=== PATIENT | male | born 1985 | race Caucasian/White ===

== ENCOUNTER 2016-12-03 12:30 | Day surgery (SDC) | payer OTHER ==
[~2016-12-03] VITALS: Ht 177.8 cm; Wt 87.2 kg
[2016-12-03] VITALS (7 sets, daily range): BP systolic 104–120; BP diastolic 49–70; PULSE 60–85; RESP 10–17; O2SAT 95–99
[~2016-12-03 12:30] MED LIST: CeFAZolin Inj 2 GM in IV Premix 1 EACH IV ONE
[2016-12-03] MEDS ORDERED: MetoCLOpramide 5 mg/mL 2 mL Inj ONE (12:31)
[2016-12-03] MEDS ORDERED: fentaNYL-PF 50 mCg/mL 2 mL Inj ONE (12:31)
[2016-12-03] MEDS ORDERED: Dexamethasone 4 mg/mL Inj ONE (12:31)
[2016-12-03] MEDS ORDERED: Propofol 10,000 mCg/mL 20 mL Inj ONE (12:31)
[2016-12-03] MEDS ORDERED: Ondansetron 2 mg/mL 2 mL Inj ONE (12:31)
[2016-12-03] MEDS: Lactated Ringer's 1,000 ML IV SCH ×2 (12:46→13:51)
[2016-12-03] MEDS ORDERED: CeFAZolin Inj 2 gm / 50mL D5W IV ONE (13:04)
[2016-12-03] MEDS ORDERED: Lactated Ringer's 1,000 ML IV SCH (13:41)
[2016-12-03] MEDS ORDERED: Lactated Ringer's 500 ML IV PRN (13:41)
--- NOTE | 2016-12-03 13:41 | PCM.HPANE ---
Patient Data Surgeon Admitting Provider: Attending Provider:Chas Burton MD Primary Care Physician:Helga Other Provider:Sheyla Garcia Anesthesia Reason for Visit Left Medial Meniscal Tear Ht/WT & BMI Height (Feet): 5 Height (Inches): 10 Weight (Kilograms): 87.2 Body Mass Index 27.00 Allergies Coded Allergies: No Known Allergies (Unverified , 12/03/16) Past Anesthesia History Anesthesia History: Denies:: Fam Anesthesia Reaction, Fam Malignant Hypertherm Diabetes History Hx Diabetes?: No MRSA MRSA: No Medications Hypertension Medication: No Home Meds Incl Beta Ad: No No Active Prescriptions or Reported Meds History History of ENT Problems?: Yes HEENT History: Positive for:: Sinus Problem (SEASONAL ALLERGIES) Denture Type: None Teeth Condition: Within Normal Limits Hx of Heart Problems?: No Cardiovascular History: Denies:: Heart Murmur Hypertension Hx of Respiratory Problem?: No Respiratory History: Denies:: Use of C-PAP Machine Hx Neurologic Problems?: No Hx of GI Problems?: No Hx of Problems?: No Male Hx: Denies:: Prostate Problems Scrotal Mass Testicular Surgery Skin History: Denies:: History Skin Disorders? Pressure Ulcers Hx Musculoskeletal Problems?: Yes Musculoskeletal History: Positive for:: Musculoskeletal Trauma (HX FALL @ AGE 16YRS W/ LT KNEE INJ LT MEDIUAL MENISCAL TEAR=CURRENT PROB.) Hx of Psycho/Social Problems?: No Hx Surgeries?: No Hx Any Other Health Problems?: No Other History: Denies:: Cancer Endocrine Disease Hospitalization Thyroid Disease History Blood Transfusions: Denies:: Blood Transfusions Hx Diabetes: No Hx Substance Use: No Smoking Status: Never Smoker Have You Smoked inLast 12 mo: No Stop/Bang Treated for Sleep Apnea?: No Do You Have a CPAP Machine?: No S-Snoring: Do You Snore Loudly: No T-Tired: feel tired, fatigued: No O-Obsered: Observed not breath: No P-Blood Pressure: treated: No B- Body Mass Index > 35 kg/m2: No A- Age over 50: No N- Neck Large Circumference: No G- Gender Male: Yes GENIE Total Score: 1 GENIE Risk Assessment: Low Risk, <3 Yes Risk Assessment Category Category 1A: Patient has history of documented sleep apnea, and HAS NOT received any narcotic, sedative or anesthesia administration during this stay. Category 1B: Patient has history of documented sleep apnea, and HAS received any narcotic , sedative or anesthesia administration during this stay Category 2: Patient has SUSPECTED Obstructive Sleep Apnea, and HAS received any narcotic , sedative or anesthesia administration during this stay. Category 3: Patient has SUSPECTED Obstructive Sleep Apnea and HAS NOT received narcotic, sedative or anesthesia administration during this stay. Category 4: Outpatient in Procedural Areas with known sleep apnea or who screen positive for High Risk via the STOP/BANG questionnaire. Exam Exam Vital Signs Vital Signs Date Time Temp Pulse Resp B/P Pulse Ox O2 Delivery O2 Flow Rate FiO2 12/03/16 12:55 36.9 60 16 113/70 97 Room Air General Appearance: Oriented X3 HEENT/AIRWAY: MP 1 Lungs: Normal Air Movement Heart: Regular Rate/Rhythm Meds/Labs/Diagnostics Admission Meds Current Medications Lactated Ringer's (Lr) 1,000 ml @ 120 mls/hr [id number] IV Last administered on t 12:46; Start 12/03/16 at 05:00; Stop 12/03/16 at 13:19; Status DC Plan Impression Patient chart reviewed, patient interviewed and anesthestic plan with risks, benefits, and alternatives discussed, and informed consent obtained. ASA Physical Status: ASA1 Normal Healthy Anesthetic Plan: GA Bene/Risks/Altern/Consents: Yes HP Complete Prior to Induction: Yes Graham Griffiths MD December 03, 2016 13:41
[2016-12-03] MEDS ORDERED: EPHEDrine Sulfate 50 mg/mL Inj IVPUSH PRN (13:45)
[2016-12-03] MEDS ORDERED: HYDROmorphone 1 mg/mL Inj IVPUSH PRN (13:45)
[2016-12-03] MEDS ORDERED: Dexamethasone 4 mg/mL Inj IVPUSH PRN (13:45)
[2016-12-03] MEDS ORDERED: fentaNYL-PF 50 mCg/mL 2 mL Inj IVPUSH PRN (13:45)
[2016-12-03] MEDS ORDERED: Ondansetron 2 mg/mL 2 mL Inj IVPUSH PRN (13:45)
[2016-12-03] MEDS ORDERED: MetoCLOpramide 5 mg/mL 2 mL Inj IVPUSH PRN (13:45)
[2016-12-03] MEDS ORDERED: Phenylephrine 10,000 mCg/mL Inj IVPUSH PRN (13:45)
[2016-12-03] MEDS ORDERED: Ropivacaine-PF 0.5% 30 mL Inj INJ ONE (14:17)
[2016-12-03] MEDS ORDERED: HYDROcodone-APAP 5-325 mg Tablet PO PRN (14:45)
[2016-12-03] MEDS ORDERED: Ketorolac 15 mg/mL Inj IVPUSH ONE (14:45)
--- NOTE | 2016-12-03 14:53 | PCM.ORTHOP ---
Orthopedic Operative Report Date of Service: December 03, 2016 Pre Operative Diagnosis Left knee medial meniscus tear Post Operative Diagnosis Same Procedure Left knee arthroscopy, medial meniscus repair, chondroplasty, partial synovectomy Surgeon Surgeon: Chas Burton MD Assistants: None Indication for Procedure Left knee medial meniscus tear Findings Left knee nondisplaced horizontal bucket-handle tear Details of Procedure INDICATIONS: Jerome Rodríguez is a 31-year-old male who has had a history of left knee pain. The patient has failed conservative management. X-rays show the tibiofemoral joints to be preserved with no DJD. MRI was obtained which reveals media horizontal meniscus tear. The patient has had persistent symptoms and is now brought to the operating room for arthroscopy. The risks, benefits, and alternatives of surgery were discussed with the patient. The risks included but were not limited to infection, bleeding, damage to vessels and nerves, loss of motion, continued pain, re-tear of the meniscus, deep venous thrombosis, and complications due to anesthesia including nerve injury, myocardial infarction, stroke, , etc. The patient stated understanding of the nature of the surgical procedure and gave written and verbal consent to proceed. PROCEDURE: The patient was brought to the operating room and placed supine on the operating room table. After the administration of general anesthesia the patient was placed in the supine position. Examination of the knee revealed no evident instability with a trace effusion. All prominences were padded with appropriately and neurovascular structures protected. The left knee was confirmed to be the appropriate site following surgical time out. The left lower extremity was examined under anesthesia. Range of motion was 0-135 degrees. There was no varus or valgus or anterior or posterior instability. The left lower extremity was then prepped and draped in the usual fashion. Sterile prep and drape was then undertaken of the knee. The knee joint was injected with 20 ccs of 1% Lidocaine, along with 3 ccs of 1 % lidocaine in the medial and lateral portal sites respectively. A standard anterolateral parapatellar stab wound was created. The knee joint was entered with a blunt- tipped obturator, followed by the 30-degree video arthroscope. An anteromedial portal was established under arthroscopic control. A routine arthroscopic survey was performed. The patellofemoral joint showed grade 1/2 chondromalacia. The medial joint space was then entered. The articular surfaces showed grade 1/ 2 chondromalacia. A horizontal nondisplaced bucket-handle medial meniscal tear was noted. The rasp was used to freshen up the surface and 2 [employer] FasT-Fix suture anchors were used to repair the meniscus. A probe was used to assess the meniscus which was stable after repair. The ACL and PCL were noted to be intact. The lateral joint space was then entered. The articular surfaces were intact with grade 2/3 chondromalacia. There was degenerative fraying to the inner aspect of the lateral meniscus which was stable and did not need debridement. Grade 2/3 chondromalacia was noted on the tibial surface which was debrided with a shaver.. Moderate synovitis was noted anteriorly in the medial and lateral compartment and debrided with a shaver. The knee was irrigated with an additional 2 liters of lactated Ringer's solution. Excess fluid was drained. The portals were closed with 3-0 nylon as well as xeroform. The knee was injected with 20 mL of 0.5% ropivacaine. A dry sterile dressing was applied, followed by an REG hose, soft roll, and CESAR bandage. The patient was awakened in the operating room and transported to the recovery room in satisfactory condition. The patient appeared to tolerate the procedure well. At the completion of surgery the patient had soft compartments , palpable pulses, and brisk capillary refill. There were no complications noted. Please keep dressing clean dry and intact. Do not remove dressing until follow- up in clinic. If the dressing become soaked, you may remove the outer gauze and placed Band-Aids on the wounds. You may weight-bear as tolerated with the brace on at all times. Do Not Bend Your Knee while walking. You may bend your knee at rest from 0-90 deg gently. You may place a pillow under your heel and NOT your knee. You will follow up in clinic in 10-14 days for suture removal, and placement of new Steri-Strips. You will follow-up with me in clinic. You will follow-up with me at 6 weeks while you progress and will be released at around 3 months. Please see me prior to full release. Please keep the affected extremity elevated when possible. Please take aspirin as prescribed X 2 weeks. You may use ice and/or heat as needed for comfort. (preferably ice during the first 48-72 hours)Please feel free to call with any further questions, comments , and/or concerns. Grafts, Implants: Implants-See Implant Record Complications There were no periprocedural complications identified. Condition Stable Anesthetic Administered: GA Catheters: None Output, Estimated Blood Loss: 5 Blood Admin during surgery: No Surgical Cast or Splint: Knee Immobilizer, Other Addtional Information Hinged knee brace locked in extension Surgical Specimen Removed: No Specimen sent to Pathology: No copies to: Chas Burton MD, Christopher L MD December 03, 2016 14:53
--- NOTE | 2016-12-03 15:27 | PCM.ANEP1 ---
Post Anesthesia Phase 1 PACU Phase 1 Assessment Date of Service: December 03, 2016 Vital Signs Vital Signs Date Time Temp Pulse Resp B/P Pulse Ox O2 Delivery O2 Flow Rate FiO2 12/03/16 15:18 85 16 120/63 96 Room Air 12/03/16 14:55 67 14 106/50 99 Simple Mask 8 12/03/16 14:50 66 17 104/49 99 Simple Mask 8 12/03/16 14:42 36.5 64 10 108/51 99 Simple Mask 8 12/03/16 12:55 36.9 60 16 113/70 97 Room Air Anesthetic Administered: GA Level of Alertness: Awake, talking Pain: No Nausea or Vomiting: No Lungs: Normal Air Movement Graham Griffiths MD December 03, 2016 15:27
== END 2016-12-03 23:59 | disposition home or self-care (01) ==
LOC: SAS 12:30
PROVIDERS: ATTEND Orthopaedic Surgery
DX: M23.232 Derangement of other medial meniscus due to old tear or injury, left knee (principal); M22.42 Chondromalacia patellae, left knee; M23.262 Derangement of other lateral meniscus due to old tear or injury, left knee; M65.862 Other synovitis and tenosynovitis, left lower leg; J30.2 Other seasonal allergic rhinitis
CPT/HCPCS: 29882; C1713; J0690; J1100; J1885; J2405; J2765; J2795; J3010; J7120